=== PATIENT | female | born 1995 | race Caucasian/White ===

== ENCOUNTER 2017-05-21 23:02 | Emergency (ER) | payer OTHER ==
[~2017-05-21] VITALS: Ht 175.3 cm; Wt 58.2 kg
[~2017-05-21 23:02] MED LIST: BCP
[2017-05-21 23:33] VITALS: BP 113/72
[2017-05-21] MEDS ORDERED: DIAZEPAM 5 MG TABLET ONE (23:56)
[2017-05-21] MEDS ORDERED: KETOROLAC 30 MG/1 ML ONE ×2 (23:56→23:57)
[2017-05-22] MEDS ORDERED: DIAZEPAM 5 MG TABLET PO ONE
[2017-05-22] MEDS ORDERED: KETOROLAC 30 MG/1 ML IM ONE
== END 2017-05-22 00:22 | disposition home or self-care (01) ==
LOC: ED 23:59
DX: S76.011A Strain of muscle, fascia and tendon of right hip, initial encounter (principal); M54.2 Cervicalgia; M79.651 Pain in right thigh; M62.838 Other muscle spasm; X58.XXXA Exposure to other specified factors, initial encounter; Y93.89 Activity, other specified; Y92.89 Other specified places as the place of occurrence of the external cause; Y99.9 Unspecified external cause status
CPT/HCPCS: 96372; 99283; J1885

== ENCOUNTER 2018-09-02 23:34 | Emergency (ER) | payer OTHER, BC ==
[~2018-09-02] VITALS: Ht 175.3 cm; Wt 54.2 kg
[2018-09-02 23:36] VITALS: BP 128/85
[2018-09-03] MEDS ORDERED: IBUPROFEN 600 MG TABLET ONE (00:38)
[2018-09-03] MEDS ORDERED: HYDROcodone/APAP 5/325 TABLET ONE (00:38)
--- NOTE | 2018-09-03 00:43 | NUR ---
PT MEDICATED BY LOREE CRUMP. REPORT FROM LOREE CRUMP. PT TO HAVE ANAID WRAP, CRUTCHES, AND D/C.
[2018-09-03] MEDS ORDERED: HYDROcodone/APAP 5/325 TABLET PO ONE (01:00)
[2018-09-03] MEDS ORDERED: IBUPROFEN 200 MG TABLET PO ONE (01:00)
--- NOTE | 2018-09-03 01:13 | NUR ---
ANAID WRAP COMPLETED BY TECH. PT TO D/C.
== END 2018-09-03 01:28 | disposition home or self-care (01) ==
LOC: ED 09-03 01:16
DX: S83.412A Sprain of medial collateral ligament of left knee, initial encounter (principal); X58.XXXA Exposure to other specified factors, initial encounter; Y93.89 Activity, other specified; Y92.89 Other specified places as the place of occurrence of the external cause; Y99.8 Other external cause status
CPT/HCPCS: 99283

== ENCOUNTER 2018-12-04 20:16 | Emergency (ER) | payer OTHER, BC ==
[~2018-12-04] VITALS: Ht 175.3 cm; Wt 53.1 kg
--- NOTE | 2018-12-04 20:31 | NUR ---
assessment made. chart up for MD to see.
[2018-12-04 21:05] LABS: HCG UR SG 1.017 (1.003-1.030)
--- NOTE | 2018-12-04 21:25 | NUR ---
PA at bedside.
[2018-12-04 21:39] VITALS: BP 112/76
--- NOTE | 2018-12-04 21:39 | NUR ---
patient discharged with instruction. verbalized understanding.
== END 2018-12-04 21:41 | disposition home or self-care (01) ==
LOC: ED 20:56
DX: N93.9 Abnormal uterine and vaginal bleeding, unspecified (principal); Z32.02 Encounter for pregnancy test, result negative
CPT/HCPCS: 81025; 99283